=== PATIENT | male | born 1970 | race Hispanic/Latino ===

== ENCOUNTER 2022-02-25 21:13 | Emergency (ER) | payer SELFPAY ==
[~2022-02-25] VITALS: Ht 170.2 cm; Wt 72.6 kg
== END 2022-02-25 22:08 | disposition home or self-care (01) ==
LOC: ER 21:59
DX: L03.116 Cellulitis of left lower limb (principal); L03.115 Cellulitis of right lower limb; L23.7 Allergic contact dermatitis due to plants, except food; R50.9 Fever, unspecified; E11.9 Type 2 diabetes mellitus without complications; E78.5 Hyperlipidemia, unspecified; F17.210 Nicotine dependence, cigarettes, uncomplicated
CPT/HCPCS: 99282